=== PATIENT | male | born 1950 | race Caucasian/White ===

== ENCOUNTER 2018-03-01 11:31 | Emergency (ER) | payer SELFPAY ==
[~2018-03-01] VITALS: Ht 177.8 cm; Wt 73.0 kg
[2018-03-01 12:11] VITALS: BP 141/88
== END 2018-03-01 12:26 | disposition home or self-care (01) ==
LOC: ED 12:20
DX: Z00.00 Encounter for general adult medical examination without abnormal findings (principal)
CPT/HCPCS: 99283